=== PATIENT | male | born 1945 | race Caucasian/White ===

== ENCOUNTER 2019-10-12 06:53 | Day surgery (SDC) | payer MEDICARE ==
[2019-10-12] VITALS (11 sets, daily range): BP systolic 130–154; BP diastolic 59–76
[~2019-10-12] VITALS: Ht 182.9 cm; Wt 106.5 kg
[2019-10-12] MEDS ORDERED: acetaminophen 325mg tablet PO ONE (07:30)
[2019-10-12] MEDS ORDERED: diphenhydrAMINE 25mg capsule PO ONE (07:30)
[2019-10-12] MEDS ORDERED: dexamethasone 4mg/ml inj IV ONE (07:30)
[2019-10-12] MEDS ORDERED: dexamethasone sod phosphate 4mg/ml inj. IV ONE (07:40)
[2019-10-12] MEDS ORDERED: normal saline 1000ml 1,000 ML IV SCH (07:55)
== END 2019-10-12 12:30 | disposition home or self-care (01) ==
LOC: SSTAY O 06:53 → EDSTATUS 14:37
PROVIDERS: ATTEND Internal Medicine Hematology & Oncology
DX: C15.9 Malignant neoplasm of esophagus, unspecified (principal); C16.9 Malignant neoplasm of stomach, unspecified
CPT/HCPCS: 36415; 36430; 86885; 86900; 86901; 86920; 86945; J1100; P9016; Q0163

== ENCOUNTER 2019-11-19 18:27 | Inpatient (IN) | payer OTHER, MEDICARE ==
[~2019-11-19] VITALS: Ht 182.9 cm; Wt 104.0 kg
[~2019-11-19 18:27] MED LIST: HYDR4TAB55 PO; LIDO30CR23 TOP; PROC10TA10 PO
--- NOTE | 2019-11-19 18:41 | NUR ---
Pt came in on NRB@15 LPM SaO2 100%. Desat to 87% on RA. Increase to 93% on NC@6 LPM
[2019-11-19] MEDS ORDERED: iohexol 350MG/ML 100ml bottle IV ONE (18:53)
[2019-11-19 19:15] LABS: ABG BASE EXCESS 13.4 mmol/L (-2.0-3.0); ABG HCO3 39.3 mmol/L (22.0-26.0); ABG OXYGEN SATURATION 87.1 % (95-98); ABG PCO2 (T) 58.4 mmHg (35.0-45.0); ABG PH (T) 7.447 (7.350-7.450); ABG PO2 (T) 49.7 mmHg (83-108); ALLEN'S TEST POSITIVE; FCOHb 0.3 % (0.5-1.5); FLOW 6 L/min; FO2Hb 86.8 % (94-100); PATIENT TEMPERATURE 37.2; RESPIRATORY RATE 18 b/min; TOTAL HEMOGLOBIN 10.5 G/dl (14.0-17.9)
[2019-11-19 19:18] LABS: BASOPHILS # (AUTO) 0.2 X10'3 (0-0.2); BASOPHILS % (AUTO) 0.4 % (0-1); EOSINOPHILS # (AUTO) 0.4 X10'3 (0-0.9); EOSINOPHILS % (AUTO) 1.1 % (0-6); HEMATOCRIT 29.7 % (42.0-52.0); HEMOGLOBIN 9.3 g/dl (14.0-17.9); LYMPHOCYTES # (AUTO) 1.2 X10'3 (1.1-4.8); LYMPHOCYTES % (AUTO) 3.1 % (21-51); MEAN CORPUSCULAR HEMOGLOBIN 28.2 PG (27.0-31.0); MEAN CORPUSCULAR HGB CONC 31.4 g/dL (33.0-36.5); MEAN CORPUSCULAR VOLUME 89.6 FL (78-98); MEAN PLATELET VOLUME 9.5 FL (7.4-10.4); MONOCYTES # (AUTO) 2.1 X10'3 (0-0.9); MONOCYTES % (AUTO) 5.3 % (2-12); NEUTROPHILS # (AUTO) 36.1 X10'3 (1.8-7.7); NEUTROPHILS % (AUTO) 90.1 % (42-75); PLATELET COUNT 493 X10'3 (140-440); RED BLOOD COUNT 3.32 X10'6 (4.70-6.10); RED CELL DISTRIBUTION WIDTH 16.7 % (11.5-14.5)
[2019-11-19 19:31] LABS: ALANINE AMINOTRANSFERASE 27 U/L (12-78); ALBUMIN 1.8 G/DL (3.4-5.0); ALBUMIN/GLOBULIN RATIO 0.3 (1.1-1.5); ALKALINE PHOSPHATASE 137 IU/L (46-116); ANION GAP 3 (8-16); ASPARTATE AMINO TRANSFERASE 34 U/L (10-37); BILIRUBIN,TOTAL 0.3 MG/DL (0.1-1.0); BLOOD UREA NITROGEN 33 MG/DL (7-18); BUN/CREATININE RATIO 20.8 (5.4-32.0); CALCIUM 8.7 MG/DL (8.5-10.1); CHLORIDE 100 MMOL/L (99-107); CREATININE 1.59 MG/DL (0.60-1.10); GLUCOSE 134 MG/DL (70-104); POTASSIUM 3.9 MMOL/L (3.5-5.1); SODIUM 142 MMOL/L (135-145); TOTAL PROTEIN 7.5 G/DL (6.4-8.2); eGFR 43 ML/MIN
[2019-11-19 19:48] LABS: TOTAL CELLS COUNTED 100
[2019-11-19 19:50] LABS: ANISOCYTOSIS 1+; PLATELET ESTIMATE INCREASED; STOMATOCYTES 1+; TARGET CELLS 1+
[2019-11-19] MEDS ORDERED: heparin 10,000 units/1 ML INJ IV ONE ×2 (19:55→20:00)
--- NOTE | 2019-11-19 20:00 | NUR ---
per ann Denton start PE heparin protocol
[2019-11-19] MEDS: heparin 25,000 UNIT/250ml bag 250 ML IV SCH (20:11)
[2019-11-19] MEDS ORDERED: AMIO200T61 PO (20:21)
[2019-11-19] MEDS ORDERED: DOCU100C40 PO (20:21)
[2019-11-19] MEDS ORDERED: ENOX100S3 SQ (20:22)
[2019-11-19] MEDS ORDERED: FURO-149 PO (20:22)
[2019-11-19] MEDS ORDERED: HYDR-4383 PO (20:23)
[2019-11-19] MEDS ORDERED: ROBCFL PO (20:23)
[2019-11-19] MEDS ORDERED: LANTUS SQ (20:24)
[2019-11-19] MEDS ORDERED: INSU100C10 SQ (20:25)
[2019-11-19] MEDS ORDERED: METH125V13 IM (20:26)
[2019-11-19] MEDS ORDERED: PANT40TA4 PO (20:26)
[2019-11-19] MEDS ORDERED: ALB0.5UD IH (20:26)
[2019-11-19] MEDS ORDERED: ATR0.5NEB IH (20:27)
[2019-11-19] MEDS ORDERED: PIPE3.376 IV (20:28)
[2019-11-19] MEDS ORDERED: VANC1VIA21 IV (20:28)
[2019-11-19] MEDS ORDERED: ACET-1008 PO (20:29)
[2019-11-19] MEDS ORDERED: MAG355OR18 PO (20:30)
[2019-11-19] MEDS ORDERED: LOPE2CAP PO (20:30)
[2019-11-19] MEDS ORDERED: LORA2VIA30 IM (20:31)
[2019-11-19] MEDS ORDERED: ONDA4TAB12 PO (20:32)
[2019-11-19] MEDS ORDERED: OLAN5TAB3 PO (20:32)
[2019-11-19] MEDS ORDERED: POLY17PO10 PO (20:33)
--- NOTE | 2019-11-19 22:36 | NUR ---
SPOKE WITH DR. STROUD AT [facility] DR. STROUD WAS ASKING FOR AN UPDATE, I RECIEVED PHONE # AND VERBALIZED TO NANCY STARKS, NANCY STARKS VERBALIZE THAT HE WOULD CALL DR. STROUD IN FRONT OF DR. CARLIN
[2019-11-19] MEDS ORDERED: acetaminophen 325mg tablet PO PRN (23:25)
[2019-11-19] MEDS ORDERED: magnesium hydroxide 30ml (MOM) UD suspension PO PRN (23:25)
[2019-11-19] MEDS ORDERED: ondansetron/PF 4mg/2ml inj IV PRN (23:25)
[2019-11-19] MEDS ORDERED: mag hydrox/Alum hydrox/simeth 30ml oral suspension PO PRN (23:25)
[2019-11-19] MEDS ORDERED: mag hydrox/Alum hydrox/simeth 30ml oral suspension GT PRN (23:32)
[2019-11-19] MEDS ORDERED: magnesium hydroxide 30ml (MOM) UD suspension GT PRN (23:33)
[2019-11-19] MEDS ORDERED: acetaminophen 325mg/10.15ml oral unit dose solution GT PRN (23:35)
--- NOTE | 2019-11-19 23:39 | NUR ---
Limited code status: Everything okay EXCEPT compressions
[2019-11-19] MEDS ORDERED: dextrose 50%-water 50ml dispensing syringe IV PRN ×2 (23:40)
[2019-11-19] MEDS ORDERED: MESSAGE TO PHARMACY PO ONE (23:40)
[2019-11-19] MEDS ORDERED: LORazepam 2 mg/ml vial IM PRN (23:40)
[2019-11-19] MEDS ORDERED: dextrose ORAL solution 15 GM/59 ML bottle PO PRN ×2 (23:40)
[2019-11-19] MEDS ORDERED: glucagon, human recombinant 1mg kit SUBCUT PRN (23:40)
[2019-11-19] MEDS ORDERED: albuterol 2.5 MG/3 ML nebule NEB PRN (23:40)
[2019-11-19] MEDS: normal saline 1000ml 1,000 ML IV SCH (23:49)
[2019-11-20 00:01] LABS: ABG BASE EXCESS 13.5 mmol/L (-2.0-3.0); ABG HCO3 39.2 mmol/L (22.0-26.0); ABG OXYGEN SATURATION 84.9 % (95-98); ABG PCO2 (T) 56.4 mmHg (35.0-45.0); ABG PO2 (T) 46.7 mmHg (83-108); ALLEN'S TEST POSITIVE; FCOHb 0.3 % (0.5-1.5); FLOW 6 L/min; FMetHb 0.1 % (0.3-1.12); FO2Hb 84.6 % (94-100); TOTAL HEMOGLOBIN 10.2 G/dl (14.0-17.9)
[2019-11-20 00:04] LABS: HEMOGLOBIN A1C 5.7 % (4.5-6.2)
[2019-11-20] MEDS ORDERED: dextrose ORAL solution 15 GM/59 ML bottle GT PRN ×2 (00:08)
[2019-11-20] MEDS: piperacillin/tazo 3.375gm/50ml 50 ML IV SCH ×3 (00:38→16:00)
[2019-11-20] MEDS: VANCOMYCIN IV SCH ×3 (00:42→03:30)
[2019-11-20] MEDS: SODIUM CHLORIDE IV SCH ×3 (00:42→03:30)
[2019-11-20] MEDS: [UNRECOGNIZED DRUG - OTHER] IV SCH ×3 (00:42→03:30)
[2019-11-20 02:00] VITALS: BP 127/44
[2019-11-20] MEDS: ipratropium 0.5 MG/2.5ML nebule IH SCH ×6 (02:30→23:38)
[2019-11-20 02:48] LABS: PARTIAL THROMBOPLASTIN TIME 66 SECONDS (22-32)
[2019-11-20] MEDS: HYDROmorphone 2mg tablet JT PRN ×3 (02:49→20:30)
[2019-11-20 06:00] VITALS: BP 112/70
--- NOTE | 2019-11-20 06:49 | NUR ---
Patient in room PCU 3024. I have received report from juan ascencio and had the opportunity to ask questions and assume patient care.
[2019-11-20 07:21] LABS: BASOPHILS % (AUTO) 0.1 % (0-1); EOSINOPHILS # (AUTO) 0.5 X10'3 (0-0.9); EOSINOPHILS % (AUTO) 1.9 % (0-6); HEMATOCRIT 31.3 % (42.0-52.0); HEMOGLOBIN 9.7 g/dl (14.0-17.9); LYMPHOCYTES # (AUTO) 1.1 X10'3 (1.1-4.8); LYMPHOCYTES % (AUTO) 3.7 % (21-51); MEAN CORPUSCULAR HEMOGLOBIN 27.4 PG (27.0-31.0); MEAN CORPUSCULAR VOLUME 88.5 FL (78-98); MEAN PLATELET VOLUME 9.6 FL (7.4-10.4); MONOCYTES # (AUTO) 1.9 X10'3 (0-0.9); MONOCYTES % (AUTO) 6.4 % (2-12); NEUTROPHILS # (AUTO) 25.8 X10'3 (1.8-7.7); NEUTROPHILS % (AUTO) 87.9 % (42-75); PLATELET COUNT 446 X10'3 (140-440); RED BLOOD COUNT 3.54 X10'6 (4.70-6.10); RED CELL DISTRIBUTION WIDTH 16.9 % (11.5-14.5)
[2019-11-20 07:28] LABS: WHITE BLOOD COUNT 29.3 X10'3 (4.5-11.0)
[2019-11-20 07:32] LABS: ALANINE AMINOTRANSFERASE 26 U/L (12-78); ALBUMIN 1.6 G/DL (3.4-5.0); ALBUMIN/GLOBULIN RATIO 0.3 (1.1-1.5); ALKALINE PHOSPHATASE 144 IU/L (46-116); ANION GAP 2 (8-16); ASPARTATE AMINO TRANSFERASE 36 U/L (10-37); BILIRUBIN,TOTAL 0.3 MG/DL (0.1-1.0); BLOOD UREA NITROGEN 29 MG/DL (7-18); CALCIUM 8.8 MG/DL (8.5-10.1); CHLORIDE 100 MMOL/L (99-107); CREATININE 1.61 MG/DL (0.60-1.10); GLUCOSE 150 MG/DL (70-104); POTASSIUM 3.8 MMOL/L (3.5-5.1); SODIUM 139 MMOL/L (135-145); TOTAL CARBON DIOXIDE 36.9 MMOL/L (24-32); TOTAL PROTEIN 6.9 G/DL (6.4-8.2); eGFR 42 ML/MIN
[2019-11-20 07:46] LABS: PLATELET ESTIMATE INCREASED; TOTAL CELLS COUNTED 100
[2019-11-20 07:47] LABS: ANISOCYTOSIS 1+; HYPOCHROMASIA 1+
[2019-11-20] MEDS ORDERED: pantoprazole 40mg Tablet.DR PO SCH (08:00)
[2019-11-20] MEDS ORDERED: docusate sod 100mg capsule PO SCH (08:00)
[2019-11-20] MEDS ORDERED: furosemide 40mg tablet PO SCH (08:00)
[2019-11-20] MEDS: pantoprazole 40 MG vial IV SCH (08:01)
[2019-11-20] MEDS: docusate sodium 100mg/10ml UD cup GT SCH ×2 (08:02→19:26)
[2019-11-20] MEDS: amiodarone 200mg tablet JT SCH (08:02)
[2019-11-20] MEDS: furosemide 40 MG/4 ML oral solution UD cup GT SCH ×3 (08:02→20:19)
[2019-11-20 09:18] LABS: PARTIAL THROMBOPLASTIN TIME 30 SECONDS (22-32)
[2019-11-20] MEDS ORDERED: heparin 10,000 units/1 ML INJ IV PRN (09:40)
[2019-11-20] MEDS: heparin 25,000 UNIT/250ml bag 250 ML IV SCH ×2 (10:00→23:19)
[2019-11-20 11:00] VITALS: BP 106/48
--- NOTE | 2019-11-20 11:23 | NUR ---
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 TF recommendations below calculated to meet 100% of patient's estimated nutrient needs. Pt with active clear liquid diet, previously receiving full liquids prior to discharge 11/11 at last admit. Pt would benefit from MVI and intramuscular or subcutaneous vitamin B12 given recent GI surgery, d/w RN. Pt readmitted from [facility] with a pulmonary embolism. [facility] 11/18. Will continue to follow closely. Recommendations: 1) Continuous TF via jejunostomy using Vital AF with goal rate of 85 mL/hr to provide 2040 mL total volume/day, 2448 kcal, 153 g protein, and 1654 mL water 2) Additional 100 mL water flush Q4H; Not to exceed greater than 150 mL total volume at one time via J-tube 3) Prealbumin q /; daily weights 4) MVI and SQ or IM vitamin B12 given recent GI surgery with MD approval 5) Diet advancement as medically indicated 6) Routine bowel care Addendum: 11/20/19 at [address] Amended: Links added.
[2019-11-20] MEDS ORDERED: VANCOMYCIN 1,500MG inj. 1,500 MG in normal saline 500ml IV soln 500 ML IV SCH (12:00)
[2019-11-20] MEDS: VANCOMYCIN 1,500MG inj. 1,500 MG in normal saline 500ml IV soln 500 ML IV SCH (12:00)
[2019-11-20 15:00] VITALS: BP 105/61
[2019-11-20] MEDS: normal saline 1000ml 1,000 ML IV SCH (16:01)
--- NOTE | 2019-11-20 17:00 | NUR ---
paged with critical value;ptt =132 heparin gtt turned off for 2 hours per protocol
[2019-11-20 18:00] VITALS: BP 113/51
--- NOTE | 2019-11-20 18:37 | NUR ---
Problems reprioritized. Patient report given, questions answered & plan of care reviewed with VICTOR HUGO Smith.
--- NOTE | 2019-11-20 19:45 | NUR ---
Problems reprioritized. Patient report given, questions answered & plan of care reviewed with Jory GAY.
[2019-11-20] MEDS ORDERED: OLANZAPINE 5 MG TABLET PO SCH (21:00)
[2019-11-20] MEDS: insulin glargine (Lantus) pen - multi-dose SQ SCH (21:00)
[2019-11-20] MEDS: OLANZapine 5mg rapidly disint. tablet PO SCH (21:00)
[2019-11-20 22:00] VITALS: BP 95/42
[2019-11-21] MEDS: piperacillin/tazo 3.375gm/50ml 50 ML IV SCH ×3 (00:39→16:04)
[2019-11-21] MEDS: VANCOMYCIN 1,500MG inj. 1,500 MG in normal saline 500ml IV soln 500 ML IV SCH ×2 (00:39→12:00)
[2019-11-21] MEDS: HYDROmorphone 2mg tablet JT PRN ×4 (00:40→22:14)
[2019-11-21 02:00] VITALS: BP 126/51
[2019-11-21] MEDS: ipratropium 0.5 MG/2.5ML nebule IH SCH ×6 (03:41→23:11)
[2019-11-21 05:21] LABS: BASOPHILS # (AUTO) 0.2 X10'3 (0-0.2); BASOPHILS % (AUTO) 1.2 % (0-1); EOSINOPHILS # (AUTO) 1.1 X10'3 (0-0.9); EOSINOPHILS % (AUTO) 7.2 % (0-6); HEMATOCRIT 34.6 % (42.0-52.0); HEMOGLOBIN 10.7 g/dl (14.0-17.9); LYMPHOCYTES # (AUTO) 1.2 X10'3 (1.1-4.8); LYMPHOCYTES % (AUTO) 7.8 % (21-51); MEAN CORPUSCULAR HEMOGLOBIN 28.5 PG (27.0-31.0); MEAN CORPUSCULAR HGB CONC 30.9 g/dL (33.0-36.5); MEAN CORPUSCULAR VOLUME 92.2 FL (78-98); MEAN PLATELET VOLUME 9.8 FL (7.4-10.4); MONOCYTES # (AUTO) 1.8 X10'3 (0-0.9); MONOCYTES % (AUTO) 12.1 % (2-12); NEUTROPHILS # (AUTO) 10.7 X10'3 (1.8-7.7); NEUTROPHILS % (AUTO) 71.7 % (42-75); PLATELET COUNT 412 X10'3 (140-440); RED BLOOD COUNT 3.75 X10'6 (4.70-6.10); RED CELL DISTRIBUTION WIDTH 16.8 % (11.5-14.5); WHITE BLOOD COUNT 14.9 X10'3 (4.5-11.0)
[2019-11-21 06:00] VITALS: BP 118/49
--- NOTE | 2019-11-21 06:20 | NUR ---
Patient in room PCU 3024. I have received report from VICTOR HUGO Smith and had the opportunity to ask questions and assume patient care. Patient currently resting in bed, bed locked and low, call light in reach, no acute distress, will continue to monitor.
--- NOTE | 2019-11-21 06:23 | NUR ---
Problems reprioritized. Patient report given, questions answered & plan of care reviewed with Ashley GAY.
[2019-11-21 07:25] LABS: ALANINE AMINOTRANSFERASE 28 U/L (12-78); ALBUMIN 1.7 G/DL (3.4-5.0); ALBUMIN/GLOBULIN RATIO 0.3 (1.1-1.5); ALKALINE PHOSPHATASE 140 IU/L (46-116); ANION GAP -1 (8-16); ASPARTATE AMINO TRANSFERASE 35 U/L (10-37); BILIRUBIN,TOTAL 0.2 MG/DL (0.1-1.0); BLOOD UREA NITROGEN 25 MG/DL (7-18); BUN/CREATININE RATIO 15.4 (5.4-32.0); CALCIUM 8.9 MG/DL (8.5-10.1); CHLORIDE 100 MMOL/L (99-107); CREATININE 1.62 MG/DL (0.60-1.10); GLUCOSE 143 MG/DL (70-104); SODIUM 136 MMOL/L (135-145); TOTAL CARBON DIOXIDE 36.7 MMOL/L (24-32); TOTAL PROTEIN 7.2 G/DL (6.4-8.2); eGFR 42 ML/MIN
[2019-11-21] MEDS: furosemide 40 MG/4 ML oral solution UD cup GT SCH (08:28)
[2019-11-21] MEDS: amiodarone 200mg tablet JT SCH (08:28)
[2019-11-21] MEDS: docusate sodium 100mg/10ml UD cup GT SCH ×2 (08:29→18:56)
[2019-11-21] MEDS: pantoprazole 40 MG vial IV SCH (08:29)
[2019-11-21] MEDS: normal saline 1000ml 1,000 ML IV SCH (08:30)
--- NOTE | 2019-11-21 09:45 | NUR ---
PAGER ID: [phone] MESSAGE: Ashley Guevara RN, ext [phone], [phone], Mansi, patient's cough/lung sounds wet, white thick, frothy sputum, stopped NS@60, awaiting orders, also did not know why he was getting NS and Lasix simultaneously.
[2019-11-21] MEDS ORDERED: furosemide 40mg/4ml inj IV ONE (10:10)
--- NOTE | 2019-11-21 10:15 | NUR ---
Dr. Elaine at bedside, ordered lasix 40mg IV BID and DC'd NS.
[2019-11-21 11:00] VITALS: BP 114/50
[2019-11-21] MEDS ORDERED: VANCOMYCIN LEVEL IV ONE (11:30)
--- NOTE | 2019-11-21 12:22 | NUR ---
Critically high Vanco trough of 38.7 reported from Lab. Clare CRAWFORD to make aware and called pharmacy, pharmacist stated to hold 1200 Vanco dose.
[2019-11-21] MEDS ORDERED: VANCOMYCIN 1,500MG inj. 1,500 MG in normal saline 500ml IV soln 500 ML IV PRN (12:40)
[2019-11-21] MEDS: heparin 25,000 UNIT/250ml bag 250 ML IV SCH (13:24)
[2019-11-21 15:00] VITALS: BP 97/46
[2019-11-21] MEDS: furosemide 40mg/4ml inj IV SCH (16:03)
[2019-11-21 16:17] LABS: PARTIAL THROMBOPLASTIN TIME 56 SECONDS (22-32)
[2019-11-21 18:00] VITALS: BP 94/49
--- NOTE | 2019-11-21 18:26 | NUR ---
Problems reprioritized. Patient report given, questions answered & plan of care reviewed with VICTOR HUGO Benítez.
[2019-11-21] MEDS: insulin glargine (Lantus) pen - multi-dose SQ SCH (21:00)
[2019-11-21] MEDS: OLANZapine 5mg rapidly disint. tablet PO SCH (21:00)
[2019-11-21 22:00] VITALS: BP 109/47
[2019-11-22] VITALS (8 sets, daily range): BP systolic 90–169; BP diastolic 38–60
[2019-11-22] MEDS: piperacillin/tazo 3.375gm/50ml 50 ML IV SCH ×4 (00:02→23:13)
[2019-11-22] MEDS: heparin 25,000 UNIT/250ml bag 250 ML IV SCH (01:17)
[2019-11-22] MEDS: VANCOMYCIN LEVEL IV SCH (03:00)
[2019-11-22] MEDS: ipratropium 0.5 MG/2.5ML nebule IH SCH ×6 (03:54→23:52)
[2019-11-22 05:21] LABS: BASOPHILS # (AUTO) 0.2 X10'3 (0-0.2); EOSINOPHILS # (AUTO) 0.8 X10'3 (0-0.9); EOSINOPHILS % (AUTO) 5.6 % (0-6); HEMATOCRIT 31.1 % (42.0-52.0); HEMOGLOBIN 9.7 g/dl (14.0-17.9); LYMPHOCYTES # (AUTO) 1.2 X10'3 (1.1-4.8); LYMPHOCYTES % (AUTO) 8.6 % (21-51); MEAN CORPUSCULAR HEMOGLOBIN 28.4 PG (27.0-31.0); MEAN CORPUSCULAR HGB CONC 31.3 g/dL (33.0-36.5); MEAN CORPUSCULAR VOLUME 90.6 FL (78-98); MEAN PLATELET VOLUME 9.5 FL (7.4-10.4); MONOCYTES # (AUTO) 1.6 X10'3 (0-0.9); MONOCYTES % (AUTO) 11.2 % (2-12); NEUTROPHILS # (AUTO) 10.7 X10'3 (1.8-7.7); NEUTROPHILS % (AUTO) 73.6 % (42-75); PLATELET COUNT 422 X10'3 (140-440); RED BLOOD COUNT 3.43 X10'6 (4.70-6.10); RED CELL DISTRIBUTION WIDTH 16.4 % (11.5-14.5); WHITE BLOOD COUNT 14.5 X10'3 (4.5-11.0)
[2019-11-22 05:52] LABS: ALANINE AMINOTRANSFERASE 32 U/L (12-78); ALBUMIN 1.7 G/DL (3.4-5.0); ALBUMIN/GLOBULIN RATIO 0.3 (1.1-1.5); ALKALINE PHOSPHATASE 134 IU/L (46-116); ANION GAP 6 (8-16); ASPARTATE AMINO TRANSFERASE 38 U/L (10-37); BILIRUBIN,TOTAL 0.3 MG/DL (0.1-1.0); BLOOD UREA NITROGEN 23 MG/DL (7-18); BUN/CREATININE RATIO 13.9 (5.4-32.0); CALCIUM 8.6 MG/DL (8.5-10.1); CHLORIDE 96 MMOL/L (99-107); CREATININE 1.66 MG/DL (0.60-1.10); GLUCOSE 170 MG/DL (70-104); POTASSIUM 3.6 MMOL/L (3.5-5.1); PREALBUMIN 9.8 MG/DL (19-36); SODIUM 139 MMOL/L (135-145); TOTAL CARBON DIOXIDE 37.2 MMOL/L (24-32); TOTAL PROTEIN 7.3 G/DL (6.4-8.2); eGFR 41 ML/MIN
[2019-11-22 05:53] LABS: VANCOMYCIN,TROUGH 27.4 UG/ML (6.0-14.0)
--- NOTE | 2019-11-22 06:07 | NUR ---
Problems reprioritized. Patient report given, questions answered & plan of care reviewed with Génesis GAY.
--- NOTE | 2019-11-22 06:35 | NUR ---
Patient in room PCU 3024. I have received report from VICTOR HUGO Benítez and had the opportunity to ask questions and assume patient care.
[2019-11-22] MEDS: pantoprazole 40 MG vial IV SCH (08:27)
[2019-11-22] MEDS: furosemide 40mg/4ml inj IV SCH ×3 (08:27→17:27)
[2019-11-22] MEDS: docusate sodium 100mg/10ml UD cup GT SCH ×2 (08:27→19:33)
[2019-11-22] MEDS: amiodarone 200mg tablet JT SCH (08:27)
[2019-11-22] MEDS: insulin Lispro (HumaLOG) vial - multi-dose SQ SCH ×3 (08:43→20:03)
--- NOTE | 2019-11-22 16:30 | NUR ---
PAGER ID: [phone] MESSAGE: [id number]. pt. Tanvir Cabrera. pharmacy said heparin should be d/c 2 hrs before lovenox. that would be at 1800. pt. heparin just ran dry and it seems excessive to order a new bag. please advise. Génesis, [phone]
--- NOTE | 2019-11-22 18:00 | NUR ---
Patient in room PCU 3024. I have received report from VICTOR HUGO Capps and had the opportunity to ask questions and assume patient care.
[2019-11-22] MEDS: enoxaparin 100mg/ml syringe SUBCUT SCH (18:39)
--- NOTE | 2019-11-22 18:42 | NUR ---
Problems reprioritized. Patient report given, questions answered & plan of care reviewed with VICTOR HUGO Handley.
[2019-11-22] MEDS: lactobacillus rhamnosus 10,000 MMU CELLS/CAPSULE PO SCH (19:33)
[2019-11-22] MEDS ORDERED: enoxaparin 100mg/ml syringe SUBCUT SCH (20:00)
[2019-11-22] MEDS: insulin glargine (Lantus) pen - multi-dose SQ SCH (20:04)
[2019-11-22] MEDS: OLANZapine 5mg rapidly disint. tablet PO SCH (20:09)
[2019-11-23 02:00] VITALS: BP 159/62
[2019-11-23] MEDS: VANCOMYCIN LEVEL IV SCH (03:00)
[2019-11-23] MEDS: ipratropium 0.5 MG/2.5ML nebule IH SCH ×6 (03:16→23:59)
[2019-11-23 04:21] LABS: BASOPHILS # (AUTO) 0.1 X10'3 (0-0.2); BASOPHILS % (AUTO) 0.7 % (0-1); EOSINOPHILS # (AUTO) 0.5 X10'3 (0-0.9); EOSINOPHILS % (AUTO) 3.2 % (0-6); HEMATOCRIT 28.4 % (42.0-52.0); HEMOGLOBIN 9.2 g/dl (14.0-17.9); LYMPHOCYTES # (AUTO) 1.1 X10'3 (1.1-4.8); LYMPHOCYTES % (AUTO) 7.2 % (21-51); MEAN CORPUSCULAR HEMOGLOBIN 28.7 PG (27.0-31.0); MEAN CORPUSCULAR HGB CONC 32.3 g/dL (33.0-36.5); MEAN CORPUSCULAR VOLUME 89.1 FL (78-98); MEAN PLATELET VOLUME 9.6 FL (7.4-10.4); MONOCYTES # (AUTO) 1.9 X10'3 (0-0.9); NEUTROPHILS # (AUTO) 11.2 X10'3 (1.8-7.7); NEUTROPHILS % (AUTO) 75.9 % (42-75); PLATELET COUNT 361 X10'3 (140-440); RED BLOOD COUNT 3.19 X10'6 (4.70-6.10); WHITE BLOOD COUNT 14.7 X10'3 (4.5-11.0)
[2019-11-23 04:40] LABS: ALANINE AMINOTRANSFERASE 29 U/L (12-78); ALBUMIN 1.5 G/DL (3.4-5.0); ALBUMIN/GLOBULIN RATIO 0.3 (1.1-1.5); ALKALINE PHOSPHATASE 114 IU/L (46-116); ANION GAP 4 (8-16); ASPARTATE AMINO TRANSFERASE 42 U/L (10-37); BILIRUBIN,TOTAL 0.2 MG/DL (0.1-1.0); BLOOD UREA NITROGEN 23 MG/DL (7-18); BUN/CREATININE RATIO 15.3 (5.4-32.0); CHLORIDE 98 MMOL/L (99-107); GLUCOSE 166 MG/DL (70-104); POTASSIUM 3.2 MMOL/L (3.5-5.1); SODIUM 138 MMOL/L (135-145); TOTAL CARBON DIOXIDE 36.2 MMOL/L (24-32); TOTAL PROTEIN 6.7 G/DL (6.4-8.2); VANCOMYCIN,TROUGH 17.2 UG/ML (6.0-14.0); eGFR 46 ML/MIN
[2019-11-23 06:00] VITALS: BP 98/44
--- NOTE | 2019-11-23 06:00 | NUR ---
Patient in room PCU 3024. I have received report from VICTOR HUGO Welsh and had the opportunity to ask questions and assume patient care.
--- NOTE | 2019-11-23 06:18 | NUR ---
Problems reprioritized. Patient report given, questions answered & plan of care reviewed with VICTOR HUGO Cruz.
--- NOTE | 2019-11-23 07:56 | NUR ---
Pharmacy states amiodarone is okay to be crushed.
[2019-11-23] MEDS ORDERED: magnesium 4gm in 100ml NS 100 ML IV PRN (08:05)
[2019-11-23] MEDS: K and/or MAG REPLACEMENT MC SCH ×2 (08:05→19:12)
[2019-11-23] MEDS ORDERED: potassium CL 10mEq/100ml bag 100 ML IV PRN (08:05)
[2019-11-23] MEDS ORDERED: magnesium Cl slow-release 64mg tablet PO PRN (08:05)
[2019-11-23] MEDS ORDERED: potassium Cl 20 mEq SR tablet PO PRN (08:05)
[2019-11-23] MEDS: docusate sodium 100mg/10ml UD cup GT SCH ×2 (08:34→19:12)
[2019-11-23] MEDS: enoxaparin 100mg/ml syringe SUBCUT SCH ×2 (08:34→19:11)
[2019-11-23] MEDS: vancomycin inj 1,000 MG in normal saline 250ml IV soln 250 ML IV SCH ×2 (08:34→19:56)
[2019-11-23] MEDS: pantoprazole 40 MG vial IV SCH (08:35)
[2019-11-23] MEDS: potassium Cl 20 mEq SR tablet PO PRN ×3 (08:35→23:21)
[2019-11-23] MEDS: amiodarone 200mg tablet JT SCH (08:35)
[2019-11-23] MEDS: lactobacillus rhamnosus 10,000 MMU CELLS/CAPSULE PO SCH ×2 (08:35→19:10)
[2019-11-23] MEDS: furosemide 40mg/4ml inj IV SCH ×3 (08:35→16:21)
[2019-11-23] MEDS: HYDROmorphone 2mg tablet JT PRN ×3 (08:52→22:40)
[2019-11-23] MEDS: insulin Lispro (HumaLOG) vial - multi-dose SQ SCH ×2 (09:08→15:31)
--- NOTE | 2019-11-23 10:35 | NUR ---
Reassessment: Pt with possible CHF with EF 55-60% and AURE per MD notes. Pt continues on clear liquid diet averaging 50% PO intake however noted to have refused all PO meals yesterday. Nutrient needs are being met with TF via jejunostomy, currently at goal rate. LBM 11/21. Pt documented with liquid stools however continues to be receiving routine Colace. No further nutrition intervention implemented at this time. Will continue to follow. Recommendations: 1) Continuous TF via jejunostomy using Vital AF with goal rate of 85 mL/hr to provide 2040 mL total volume/day, 2448 kcal, 153 g protein, and 1654 mL water 2) Additional 100 mL water flush Q4H; Not to exceed greater than 150 mL total volume at one time via J-tube 3) Prealbumin q /; daily weights 4) MVI and SQ or IM vitamin B12 given recent GI surgery with MD approval 5) Diet advancement as medically indicated 6) Routine bowel care Addendum: 11/23/19 at [address] Amended: Links added.
[2019-11-23] MEDS: piperacillin/tazo 3.375gm/50ml 50 ML IV SCH ×3 (10:57→23:21)
[2019-11-23 11:00] VITALS: BP 128/83
[2019-11-23 15:00] VITALS: BP 119/52
[2019-11-23 18:00] VITALS: BP 126/78
--- NOTE | 2019-11-23 18:31 | NUR ---
Problems reprioritized. Patient report given, questions answered & plan of care reviewed with VICTOR HUGO Welsh.
[2019-11-23] MEDS: OLANZapine 5mg rapidly disint. tablet PO SCH (20:11)
[2019-11-23] MEDS: insulin regular, human U-100 3ml vial - multi-dose SQ SCH (20:40)
[2019-11-23] MEDS: insulin glargine (Lantus) pen - multi-dose SQ SCH (20:42)
[2019-11-23 22:00] VITALS: BP 114/51
[2019-11-24 02:00] VITALS: BP 120/55
[2019-11-24] MEDS: ipratropium 0.5 MG/2.5ML nebule IH SCH ×6 (03:38→23:30)
[2019-11-24 05:35] LABS: BASOPHILS # (AUTO) 0.1 X10'3 (0-0.2); BASOPHILS % (AUTO) 0.5 % (0-1); EOSINOPHILS # (AUTO) 0.2 X10'3 (0-0.9); EOSINOPHILS % (AUTO) 1.4 % (0-6); HEMATOCRIT 33.2 % (42.0-52.0); HEMOGLOBIN 10.3 g/dl (14.0-17.9); LYMPHOCYTES # (AUTO) 0.8 X10'3 (1.1-4.8); LYMPHOCYTES % (AUTO) 4.4 % (21-51); MEAN CORPUSCULAR HGB CONC 30.9 g/dL (33.0-36.5); MEAN CORPUSCULAR VOLUME 90.4 FL (78-98); MEAN PLATELET VOLUME 9.6 FL (7.4-10.4); MONOCYTES # (AUTO) 1.8 X10'3 (0-0.9); MONOCYTES % (AUTO) 10.7 % (2-12); NEUTROPHILS # (AUTO) 14.2 X10'3 (1.8-7.7); PLATELET COUNT 436 X10'3 (140-440); RED BLOOD COUNT 3.68 X10'6 (4.70-6.10); WHITE BLOOD COUNT 17.2 X10'3 (4.5-11.0)
--- NOTE | 2019-11-24 05:49 | NUR ---
Paged RT. [phone] : Kyle Cabrera : Pt needs a breathing tx; his O2 sat is 77-81 % right now @ hi flow. Thanks!
[2019-11-24 06:00] VITALS: BP 121/72
[2019-11-24 06:32] LABS: ALANINE AMINOTRANSFERASE 35 U/L (12-78); ALBUMIN 1.8 G/DL (3.4-5.0); ALBUMIN/GLOBULIN RATIO 0.3 (1.1-1.5); ALKALINE PHOSPHATASE 128 IU/L (46-116); ANION GAP 3 (8-16); ASPARTATE AMINO TRANSFERASE 47 U/L (10-37); BILIRUBIN,TOTAL 0.2 MG/DL (0.1-1.0); BLOOD UREA NITROGEN 22 MG/DL (7-18); BUN/CREATININE RATIO 15.3 (5.4-32.0); CALCIUM 8.6 MG/DL (8.5-10.1); CHLORIDE 98 MMOL/L (99-107); CREATININE 1.44 MG/DL (0.60-1.10); GLUCOSE 189 MG/DL (70-104); POTASSIUM 4.1 MMOL/L (3.5-5.1); SODIUM 139 MMOL/L (135-145); TOTAL PROTEIN 7.5 G/DL (6.4-8.2); eGFR 48 ML/MIN
--- NOTE | 2019-11-24 06:40 | NUR ---
Problems reprioritized. Patient report given, questions answered & plan of care reviewed with VICTOR HUGO Argueta.
--- NOTE | 2019-11-24 06:59 | NUR ---
Patient in room PCU 3024. I have received report from Iza GAY and had the opportunity to ask questions and assume patient care.
[2019-11-24] MEDS: K and/or MAG REPLACEMENT MC SCH ×2 (08:00→20:00)
[2019-11-24] MEDS: docusate sodium 100mg/10ml UD cup GT SCH ×2 (09:10→20:00)
[2019-11-24] MEDS: vancomycin inj 1,000 MG in normal saline 250ml IV soln 250 ML IV SCH ×2 (09:10→20:00)
[2019-11-24] MEDS: piperacillin/tazo 3.375gm/50ml 50 ML IV SCH ×3 (09:10→16:45)
[2019-11-24] MEDS: furosemide 40mg/4ml inj IV SCH ×2 (09:11→16:45)
[2019-11-24] MEDS: enoxaparin 100mg/ml syringe SUBCUT SCH ×2 (09:11→20:59)
[2019-11-24] MEDS: pantoprazole 40 MG vial IV SCH (09:12)
[2019-11-24] MEDS: amiodarone 200mg tablet JT SCH (09:12)
[2019-11-24] MEDS: lactobacillus rhamnosus 10,000 MMU CELLS/CAPSULE PO SCH ×2 (09:12→20:57)
[2019-11-24] MEDS: insulin regular, human U-100 3ml vial - multi-dose SQ SCH ×3 (10:07→22:09)
[2019-11-24 10:16] LABS: ABG BASE EXCESS 9.2 mmol/L (-2.0-3.0); ABG HCO3 36.3 mmol/L (22.0-26.0); ABG OXYGEN SATURATION 97.5 % (95-98); ABG PCO2 (T) 65.1 mmHg (35.0-45.0); ABG PH (T) 7.364 (7.350-7.450); ABG PO2 (T) 99.2 mmHg (83-108); ALLEN'S TEST POSITIVE; FCOHb 0.3 % (0.5-1.5); FLOW 11 L/min; FMetHb 0.2 % (0.3-1.12); TOTAL HEMOGLOBIN 10.2 G/dl (14.0-17.9)
[2019-11-24] MEDS: HYDROmorphone 2mg tablet JT PRN ×3 (10:33→20:57)
[2019-11-24 11:00] VITALS: BP 134/59
[2019-11-24 15:00] VITALS: BP 123/53
[2019-11-24 18:15] VITALS: BP 130/60
--- NOTE | 2019-11-24 18:42 | NUR ---
Problems reprioritized. Patient report given, questions answered & plan of care reviewed with Ananya GAY.
--- NOTE | 2019-11-24 19:20 | NUR ---
Patient in room PCU 3024. I have received report from VICTOR HUGO VASQUEZ and had the opportunity to ask questions and assume patient care.
[2019-11-24] MEDS ORDERED: VANCOMYCIN LEVEL IV ONE (19:30)
--- NOTE | 2019-11-24 20:19 | NUR ---
PAGER ID: [phone] MESSAGE: [phone], Tanvir English, DX: 11/18: PE, COPD, CHROMIUM LUNG, RECENT ESPHAGECTOMY, ETC. TODAY VANCO TROUGH 24.8, WAS 17.2. RYAN Maisha, [phone]
--- NOTE | 2019-11-24 20:22 | NUR ---
PER PHARMACY, HOLD [address] KERR AWARES.
[2019-11-24] MEDS: OLANZapine 5mg rapidly disint. tablet PO SCH (20:57)
[2019-11-24] MEDS: insulin glargine (Lantus) pen - multi-dose SQ SCH (22:10)
[2019-11-24 23:19] VITALS: BP 124/58
[2019-11-25] VITALS (10 sets, daily range): BP systolic 98–163; BP diastolic 46–76
[2019-11-25] MEDS: piperacillin/tazo 3.375gm/50ml 50 ML IV SCH ×3 (00:56→16:26)
--- NOTE | 2019-11-25 03:00 | NUR ---
RT COMPLETE TREATMENT PT CURRENTLY ON NONREBREATHER. RT SUGGESTS PT GETS AN ABG AND POSSIBLE BIPAP. PAGED AND INFORMED DR. KERR AND RECEIVED ORDER FOR ABG WITH POSSIBLE BIPAP AND A STAT CXR. ORDER PLACED AND RADIOLOGY PAGED.
[2019-11-25] MEDS: ipratropium 0.5 MG/2.5ML nebule IH SCH ×4 (03:01→14:27)
[2019-11-25 03:55] LABS: ABG BASE EXCESS 11.2 mmol/L (-2.0-3.0); ABG HCO3 41.4 mmol/L (22.0-26.0); ABG OXYGEN SATURATION 92.2 % (95-98); ABG PCO2 (T) 97.8 mmHg (35.0-45.0); ABG PH (T) 7.244 (7.350-7.450); ABG PO2 (T) 69.3 mmHg (83-108); ALLEN'S TEST POSITIVE; FCOHb 0.1 % (0.5-1.5); FO2Hb 92.1 % (94-100); TOTAL HEMOGLOBIN 10.1 G/dl (14.0-17.9)
[2019-11-25] MEDS ORDERED: furosemide 40mg/4ml inj IV ONE (04:35)
--- NOTE | 2019-11-25 04:45 | NUR ---
Problems reprioritized. Patient report given, questions answered & plan of care reviewed with VICTOR HUGO RABAGO.
--- NOTE | 2019-11-25 05:00 | NUR ---
Patient in room PCU 3024. I have received report from VICTOR HUGO harris and had the opportunity to ask questions and assume patient care.
--- NOTE | 2019-11-25 05:13 | NUR ---
notified for stat chest xray showing bilateral effusions per radiologist. New orders were given for lasix 40 mg once IV now, and to switch BID lasix 40mg to TID. BP was 118/84 before administering lasix
[2019-11-25 05:51] LABS: ABG PCO2 (T) 86.1 mmHg (35.0-45.0); ABG PH (T) 7.326 (7.350-7.450); ABG PO2 (T) 83.4 mmHg (83-108); ALLEN'S TEST POSITIVE; FCOHb 0.3 % (0.5-1.5); FMetHb 0.7 % (0.3-1.12); TOTAL HEMOGLOBIN 10.2 G/dl (14.0-17.9)
--- NOTE | 2019-11-25 06:00 | NUR ---
Patient in room PCU 3024. I have received report from Marialuisa GAY and had the opportunity to ask questions and assume patient care.
--- NOTE | 2019-11-25 06:00 | NUR ---
Patient in room PCU 3024. I have received report from Marialuisa GAY and had the opportunity to ask questions and assume patient care.
--- NOTE | 2019-11-25 06:15 | NUR ---
Patient in room PCU 3024. I have received report from Marialuisa GAY and had the opportunity to ask questions and assume patient care. Patient is on Bipap at 70%fio2 at this time, tube feed is running at 85ml goal rate, patient HOB is greater than 30 degrees, patient offers no complaints at this time.
[2019-11-25 06:21] LABS: POTASSIUM 4.3 MMOL/L (3.5-5.1)
--- NOTE | 2019-11-25 06:41 | NUR ---
Problems reprioritized. Patient report given, questions answered & plan of care reviewed with VICTOR HUGO Estrada.
--- NOTE | 2019-11-25 07:29 | NUR ---
Patient labs were ordered per protocol as the patient is receiving lasix and antibiotics and lab values need to be monitored for those medications.
[2019-11-25] MEDS: amiodarone 200mg tablet JT SCH (07:51)
[2019-11-25] MEDS: docusate sodium 100mg/10ml UD cup GT SCH ×2 (07:51→19:12)
[2019-11-25] MEDS: lactobacillus rhamnosus 10,000 MMU CELLS/CAPSULE PO SCH ×2 (07:51→20:34)
[2019-11-25 07:53] LABS: BASOPHILS # (AUTO) 0.1 X10'3 (0-0.2); BASOPHILS % (AUTO) 0.5 % (0-1); EOSINOPHILS % (AUTO) 0.3 % (0-6); HEMATOCRIT 31.8 % (42.0-52.0); HEMOGLOBIN 9.7 g/dl (14.0-17.9); LYMPHOCYTES # (AUTO) 0.6 X10'3 (1.1-4.8); LYMPHOCYTES % (AUTO) 3.6 % (21-51); MEAN CORPUSCULAR HEMOGLOBIN 27.9 PG (27.0-31.0); MEAN CORPUSCULAR HGB CONC 30.4 g/dL (33.0-36.5); MEAN CORPUSCULAR VOLUME 91.7 FL (78-98); MEAN PLATELET VOLUME 9.5 FL (7.4-10.4); MONOCYTES # (AUTO) 1.2 X10'3 (0-0.9); NEUTROPHILS # (AUTO) 15.7 X10'3 (1.8-7.7); NEUTROPHILS % (AUTO) 88.6 % (42-75); PLATELET COUNT 442 X10'3 (140-440); RED BLOOD COUNT 3.46 X10'6 (4.70-6.10); RED CELL DISTRIBUTION WIDTH 17.1 % (11.5-14.5); WHITE BLOOD COUNT 17.7 X10'3 (4.5-11.0)
[2019-11-25] MEDS: furosemide 40mg/4ml inj IV SCH ×3 (07:56→20:34)
[2019-11-25] MEDS: pantoprazole 40 MG vial IV SCH (07:56)
[2019-11-25] MEDS: vancomycin inj 1,000 MG in normal saline 250ml IV soln 250 ML IV SCH (07:57)
[2019-11-25] MEDS: K and/or MAG REPLACEMENT MC SCH ×2 (08:00→19:12)
[2019-11-25] MEDS: enoxaparin 100mg/ml syringe SUBCUT SCH ×2 (08:00→20:35)
[2019-11-25 08:03] LABS: ALBUMIN 1.8 G/DL (3.4-5.0); ANION GAP 3 (8-16); BLOOD UREA NITROGEN 26 MG/DL (7-18); BUN/CREATININE RATIO 17.9 (5.4-32.0); CALCIUM 8.3 MG/DL (8.5-10.1); CHLORIDE 98 MMOL/L (99-107); CREATININE 1.45 MG/DL (0.60-1.10); GLUCOSE 170 MG/DL (70-104); SODIUM 140 MMOL/L (135-145); TOTAL CARBON DIOXIDE 39.5 MMOL/L (24-32); eGFR 48 ML/MIN
[2019-11-25] MEDS: insulin regular, human U-100 3ml vial - multi-dose SQ SCH ×3 (08:22→20:57)
--- NOTE | 2019-11-25 08:37 | NUR ---
Patient was grabbing with his hands during medication administration and assessment today. Patient grabbed orientee and RN in inappropriate places and was told to keep his hands to his self and not to touch people like that. Patients hands were re-directed, CRN was notified, RN will complete occurrence report.
[2019-11-25 13:26] LABS: ABG BASE EXCESS 14.7 mmol/L (-2.0-3.0); ABG OXYGEN SATURATION 94.6 % (95-98); ABG PCO2 (T) 80.9 mmHg (35.0-45.0); ABG PH (T) 7.343 (7.350-7.450); ABG PO2 (T) 71.5 mmHg (83-108); FCOHb 0.3 % (0.5-1.5); FMetHb 0.2 % (0.3-1.12); FO2Hb 94.1 % (94-100); RESPIRATORY RATE 16 b/min; TOTAL HEMOGLOBIN 9.6 G/dl (14.0-17.9)
--- NOTE | 2019-11-25 14:33 | NUR ---
promotional table spacer PAGER ID: [phone] MESSAGE: Cali [id number], Amador. ABG has resulted in meditech, patient is on Bipap at 100% Fio2, IPAP 18, EPAP 10. Thank you Natalie [phone]
[2019-11-25] MEDS ORDERED: albuterol 2.5 MG/3 ML nebule NEB SCH (16:25)
[2019-11-25] MEDS ORDERED: loperamide 2mg capsule PO ONE (16:35)
[2019-11-25] MEDS ORDERED: albuterol 2.5 MG/3 ML nebule NEB PRN (17:30)
--- NOTE | 2019-11-25 18:39 | NUR ---
Patient in room PCU 3024. I have received report from Natalie GAY and Myra GAY and had the opportunity to ask questions and assume patient care.
[2019-11-25] MEDS: ipratropium/albuterol 3ml nebule NEB SCH ×2 (19:17→23:28)
[2019-11-25] MEDS: acetylcysteine 200 MG/ml 4ml vial PO SCH (19:21)
[2019-11-25] MEDS: OLANZapine 5mg rapidly disint. tablet PO SCH (20:34)
[2019-11-25] MEDS: VANCOMYCIN 750MG IV in NS 250 ML IV SCH (20:34)
[2019-11-25] MEDS: insulin glargine (Lantus) pen - multi-dose SQ SCH (20:55)
[2019-11-25] MEDS: HYDROmorphone 2mg tablet JT PRN (21:18)
[2019-11-26] VITALS (13 sets, daily range): BP systolic 110–139; BP diastolic 46–85
[2019-11-26] MEDS: piperacillin/tazo 3.375gm/50ml 50 ML IV SCH ×3 (00:12→18:16)
[2019-11-26] MEDS: insulin regular, human U-100 3ml vial - multi-dose SQ SCH ×4 (02:12→20:57)
[2019-11-26] MEDS: ipratropium/albuterol 3ml nebule NEB SCH ×6 (03:58→23:23)
--- NOTE | 2019-11-26 06:00 | NUR ---
Patient in room PCU 3024. I have received report from Remedios GAY and had the opportunity to ask questions and assume patient care.
--- NOTE | 2019-11-26 06:28 | NUR ---
Problems reprioritized. Patient report given, questions answered & plan of care reviewed with Natalie GAY.
[2019-11-26 06:30] LABS: POTASSIUM 3.7 MMOL/L (3.5-5.1)
[2019-11-26 06:35] LABS: PREALBUMIN 11.2 MG/DL (19-36)
[2019-11-26] MEDS: acetylcysteine 200 MG/ml 4ml vial PO SCH ×4 (07:00→19:03)
--- NOTE | 2019-11-26 07:12 | NUR ---
Patient labs were ordered per protocol as they are on replacement protocol and lovenox, and abx which require lab monitoring for administration.
[2019-11-26] MEDS: docusate sodium 100mg/10ml UD cup GT SCH ×2 (07:23→19:29)
[2019-11-26] MEDS: amiodarone 200mg tablet JT SCH (07:24)
[2019-11-26] MEDS: lactobacillus rhamnosus 10,000 MMU CELLS/CAPSULE PO SCH ×2 (07:24→20:28)
[2019-11-26] MEDS: furosemide 40mg/4ml inj IV SCH ×3 (07:24→20:26)
[2019-11-26] MEDS: VANCOMYCIN 750MG IV in NS 250 ML IV SCH ×2 (07:25→20:27)
[2019-11-26] MEDS: pantoprazole 40 MG vial IV SCH (07:25)
[2019-11-26] MEDS: K and/or MAG REPLACEMENT MC SCH ×3 (08:00→20:00)
[2019-11-26] MEDS: enoxaparin 100mg/ml syringe SUBCUT SCH ×2 (08:00→20:29)
[2019-11-26 08:06] LABS: BASOPHILS # (AUTO) 0.2 X10'3 (0-0.2); BASOPHILS % (AUTO) 0.7 % (0-1); EOSINOPHILS # (AUTO) 0.5 X10'3 (0-0.9); EOSINOPHILS % (AUTO) 2.1 % (0-6); HEMATOCRIT 28.3 % (42.0-52.0); HEMOGLOBIN 8.8 g/dl (14.0-17.9); LYMPHOCYTES # (AUTO) 0.8 X10'3 (1.1-4.8); LYMPHOCYTES % (AUTO) 3.6 % (21-51); MEAN CORPUSCULAR HEMOGLOBIN 28.3 PG (27.0-31.0); MEAN CORPUSCULAR HGB CONC 31.3 g/dL (33.0-36.5); MEAN CORPUSCULAR VOLUME 90.5 FL (78-98); MEAN PLATELET VOLUME 9.3 FL (7.4-10.4); MONOCYTES # (AUTO) 1.6 X10'3 (0-0.9); NEUTROPHILS # (AUTO) 20.2 X10'3 (1.8-7.7); NEUTROPHILS % (AUTO) 86.6 % (42-75); PLATELET COUNT 406 X10'3 (140-440); RED BLOOD COUNT 3.12 X10'6 (4.70-6.10); RED CELL DISTRIBUTION WIDTH 17.1 % (11.5-14.5); WHITE BLOOD COUNT 23.3 X10'3 (4.5-11.0)
[2019-11-26 08:09] LABS: ALANINE AMINOTRANSFERASE 27 U/L (12-78); ALBUMIN 1.6 G/DL (3.4-5.0); ALBUMIN/GLOBULIN RATIO 0.3 (1.1-1.5); ALKALINE PHOSPHATASE 107 IU/L (46-116); ANION GAP -2 (8-16); ASPARTATE AMINO TRANSFERASE 32 U/L (10-37); BILIRUBIN,TOTAL 0.2 MG/DL (0.1-1.0); BLOOD UREA NITROGEN 29 MG/DL (7-18); BUN/CREATININE RATIO 19.9 (5.4-32.0); CALCIUM 8.3 MG/DL (8.5-10.1); CHLORIDE 101 MMOL/L (99-107); CREATININE 1.46 MG/DL (0.60-1.10); GLUCOSE 122 MG/DL (70-104); MAGNESIUM 2.4 MG/DL (1.5-2.4); POTASSIUM 3.7 MMOL/L (3.5-5.1); SODIUM 142 MMOL/L (135-145); TOTAL PROTEIN 6.9 G/DL (6.4-8.2); eGFR 47 ML/MIN
[2019-11-26 08:16] LABS: TOTAL CARBON DIOXIDE 43.1 MMOL/L (24-32)
--- NOTE | 2019-11-26 08:24 | NUR ---
promotional table spacer PAGER ID: [phone] MESSAGE: [id number] Kaci. Critical CO2 43.1. Faina [phone] (49 character message out of a maximum of 240)
--- NOTE | 2019-11-26 08:25 | NUR ---
3 ml mucomyst given with duoneb in-line tx. Addendum: 11/26/19 at 0826 by Asiya Olguin RT Amended: Links added.
[2019-11-26] MEDS: HYDROmorphone 2mg tablet JT PRN ×3 (09:19→20:27)
[2019-11-26] MEDS ORDERED: methylPREDNISolone sod succ 125mg/2ml vial IV ONE (12:35)
--- NOTE | 2019-11-26 12:37 | NUR ---
Spoke with Dr. Juárez while rounding on patient. He gave me orders for a repeat ABG this afternoon, solumedrol 125mg IV once, and solumedrol 60mg IV scheduled q6.
--- NOTE | 2019-11-26 14:33 | NUR ---
PRESSURE ULCER EDUCATION: DEFINITION: A pressure ulcer is an area of skin that breaks down when you stay in one position too long. The constant pressure against the skin reduces the blood flow to that area and the affected tissue dies. CAUSES: "Being bedridden or in a wheelchair "Fragile skin "Having a chronic condition, such as diabetes or vascular disease "Inability to move certain parts of your body without assistance "Older age "Incontinence of urine or stool SYMPTOMS: "A reddened area that DOES NOT turn white when pressed on - this can be the beginning of a pressure ulcer "A blister, deep sore or a crater - these can be advanced pressure ulcers FIRST AID: "Relieve the pressure on this area "Keep the area clean and dry "Call your primary doctor if you see any of the above symptoms "DO NOT massage the area "DO NOT use a donut shaped or ring shaped pillow- these actually interfere with the blood flow and cause complications PREVENTION: "Check for pressure ulcers everyday "Change position at least every two hours to relieve pressure "Use items that help relieve pressure- pillows, sheepskin, foam padding, and powders. "Keep skin clean and dry "Eat healthy well balanced meals "Exercise daily IF YOU SEE ANY OF THESE SYMPTOMS WHILE IN THE HOSPITAL - TELL YOUR NURSE IMMEDIATELY. IF YOU SEE ANY OF THESE SYMPTOMS WHILE AT HOME OR HAVE ANY QUESTIONS OR CONCERNS ABOUT PRESSURE ULCERS - CALL YOUR PRIMARY DOCTOR IMMEDIATELY. Addendum: 11/26/19 at 1434 by Sandi Carlson RN Amended: Links added.
[2019-11-26] MEDS ORDERED: magnesium Cl slow-release 64mg tablet PO PRN (14:35)
[2019-11-26] MEDS ORDERED: potassium CL 10mEq/100ml bag 100 ML IV PRN (14:35)
[2019-11-26] MEDS ORDERED: magnesium 4gm in 100ml NS 100 ML IV PRN (14:35)
[2019-11-26] MEDS ORDERED: potassium Cl 20 mEq SR tablet PO PRN (14:35)
[2019-11-26] MEDS: levoFLOXACIN-Levaquin 750MG/D5 150 ML IV SCH (16:30)
[2019-11-26] MEDS: methylPREDNISolone sod succ 125mg/2ml vial IV SCH ×2 (16:31→20:26)
--- NOTE | 2019-11-26 18:02 | NUR ---
Spoke with Dr. Juárez, okayed a trial on high flow nasal canula. The patient was only able to tolerated being on high flow 15L for approximately 5 to 10 min and then his oxygen saturation dropped into the 70s. Patient was placed back on Bipap and was agreeable at this time to wearing the mask.
[2019-11-26 18:10] LABS: ABG BASE EXCESS 13.2 mmol/L (-2.0-3.0); ABG OXYGEN SATURATION 93.2 % (95-98); ABG PCO2 (T) 64.5 mmHg (35.0-45.0); ABG PO2 (T) 64.5 mmHg (83-108); ALLEN'S TEST POSITIVE; FCOHb 0.3 % (0.5-1.5); FMetHb 0.1 % (0.3-1.12); FO2Hb 92.8 % (94-100); TOTAL HEMOGLOBIN 10.3 G/dl (14.0-17.9)
--- NOTE | 2019-11-26 18:17 | NUR ---
Patient in room PCU 3024. I have received report from Natalie GAY and Myra GAY and had the opportunity to ask questions and assume patient care.
--- NOTE | 2019-11-26 19:48 | NUR ---
Reassessment: Pt tolerating JTF at goal. Colace held for increase in BM's; receiving routine probiotic. BM x2 5/. PALB up to 11.2 from previous. PO 0%/refusing clear liquid diet. Will continue to monitor. Recommendations: 1) Continuous TF via jejunostomy using Vital AF with goal rate of 85 mL/hr to provide 2040 mL total volume/day, 2448 kcal, 153 g protein, and 1654 mL water 2) Additional 100 mL water flush Q4H; Not to exceed greater than 150 mL total volume at one time via J-tube 3) Prealbumin q /; daily weights 4) MVI and SQ or IM vitamin B12 given recent GI surgery with MD approval 5) Diet advancement as medically indicated to low-residue 6) Routine bowel care Addendum: 11/26/19 at [address] Amended: Links added.
[2019-11-26] MEDS: OLANZapine 5mg rapidly disint. tablet PO SCH (20:27)
[2019-11-26] MEDS: insulin glargine (Lantus) pen - multi-dose SQ SCH (20:57)
[2019-11-26] MEDS: loperamide 2mg capsule PO PRN (20:59)
[2019-11-27] VITALS (12 sets, daily range): BP systolic 100–121; BP diastolic 44–64
[2019-11-27] MEDS: piperacillin/tazo 3.375gm/50ml 50 ML IV SCH ×3 (00:29→16:53)
[2019-11-27] MEDS: methylPREDNISolone sod succ 125mg/2ml vial IV SCH ×4 (01:04→20:43)
[2019-11-27] MEDS: HYDROmorphone 2mg tablet JT PRN ×4 (01:04→20:20)
[2019-11-27] MEDS: insulin regular, human U-100 3ml vial - multi-dose SQ SCH ×3 (02:13→21:36)
[2019-11-27] MEDS: ipratropium/albuterol 3ml nebule NEB SCH ×6 (03:17→23:07)
--- NOTE | 2019-11-27 06:31 | NUR ---
Problems reprioritized. Patient report given, questions answered & plan of care reviewed with Natalie GAY and Myra GAY.
[2019-11-27] MEDS ORDERED: VANCOMYCIN LEVEL IV ONE (07:30)
[2019-11-27] MEDS: acetylcysteine 200 MG/ml 4ml vial PO SCH ×4 (07:40→19:03)
[2019-11-27 07:52] LABS: BASOPHILS % (AUTO) 0.2 % (0-1); EOSINOPHILS % (AUTO) 0 % (0-6); HEMATOCRIT 29.3 % (42.0-52.0); LYMPHOCYTES # (AUTO) 0.4 X10'3 (1.1-4.8); LYMPHOCYTES % (AUTO) 2.1 % (21-51); MEAN CORPUSCULAR HEMOGLOBIN 27.9 PG (27.0-31.0); MEAN CORPUSCULAR HGB CONC 30.8 g/dL (33.0-36.5); MEAN CORPUSCULAR VOLUME 90.4 FL (78-98); MONOCYTES # (AUTO) 0.4 X10'3 (0-0.9); NEUTROPHILS # (AUTO) 18.5 X10'3 (1.8-7.7); NEUTROPHILS % (AUTO) 95.7 % (42-75); PLATELET COUNT 427 X10'3 (140-440); RED BLOOD COUNT 3.24 X10'6 (4.70-6.10); RED CELL DISTRIBUTION WIDTH 17.5 % (11.5-14.5); WHITE BLOOD COUNT 19.3 X10'3 (4.5-11.0)
[2019-11-27 07:53] LABS: ALANINE AMINOTRANSFERASE 27 U/L (12-78); ALBUMIN 1.7 G/DL (3.4-5.0); ALBUMIN/GLOBULIN RATIO 0.3 (1.1-1.5); ALKALINE PHOSPHATASE 106 IU/L (46-116); ANION GAP 1 (8-16); ASPARTATE AMINO TRANSFERASE 35 U/L (10-37); BILIRUBIN,TOTAL 0.2 MG/DL (0.1-1.0); BLOOD UREA NITROGEN 39 MG/DL (7-18); BUN/CREATININE RATIO 25.2 (5.4-32.0); CALCIUM 8.9 MG/DL (8.5-10.1); CHLORIDE 100 MMOL/L (99-107); CREATININE 1.55 MG/DL (0.60-1.10); GLUCOSE 168 MG/DL (70-104); MAGNESIUM 2.5 MG/DL (1.5-2.4); PHOSPHORUS 3.5 MG/DL (2.3-4.5); POTASSIUM 4.1 MMOL/L (3.5-5.1); SODIUM 141 MMOL/L (135-145); TOTAL CARBON DIOXIDE 39.9 MMOL/L (24-32); TOTAL PROTEIN 7.4 G/DL (6.4-8.2); eGFR 44 ML/MIN
[2019-11-27] MEDS: amiodarone 200mg tablet JT SCH (07:54)
[2019-11-27] MEDS: lactobacillus rhamnosus 10,000 MMU CELLS/CAPSULE PO SCH ×2 (07:55→20:50)
[2019-11-27] MEDS: enoxaparin 100mg/ml syringe SUBCUT SCH ×2 (07:55→20:49)
[2019-11-27] MEDS: pantoprazole 40 MG vial IV SCH (07:56)
[2019-11-27 07:59] LABS: VANCOMYCIN,TROUGH 28.6 UG/ML (6.0-14.0)
[2019-11-27] MEDS: docusate sodium 100mg/10ml UD cup GT SCH ×2 (08:00→20:00)
[2019-11-27] MEDS: K and/or MAG REPLACEMENT MC SCH ×2 (08:00→20:00)
[2019-11-27] MEDS: levoFLOXACIN-Levaquin 750MG/D5 150 ML IV SCH (08:07)
[2019-11-27] MEDS: furosemide 40mg/4ml inj IV SCH ×3 (08:14→20:44)
[2019-11-27] MEDS: loperamide 2mg capsule PO PRN (09:17)
--- NOTE | 2019-11-27 18:37 | NUR ---
Problems reprioritized. Patient report given, questions answered & plan of care reviewed with Bárbara GAY. Patient stable at transfer of care.
[2019-11-27] MEDS ORDERED: VANCOMYCIN 750MG IV in NS 250 ML IV SCH (20:00)
[2019-11-27] MEDS: OLANZapine 5mg rapidly disint. tablet PO SCH (20:21)
[2019-11-27] MEDS: insulin glargine (Lantus) pen - multi-dose SQ SCH (21:37)
--- NOTE | 2019-11-27 22:43 | NUR ---
pt woke confused, sat at side of bed. stated he felt like he was turning to stone. Vitals ok, except oxygen which he had taken off. high flow nasal cannula applied and oxygen sats improved. pt sat at side of bed for a few minutes and then went back to bed. dick care done, small loose bm. changed coccyx dressing again due to soiling. denied needing to void. blood sugar checked, 265. reassured pt that he is being monitored and frequent rounding being done
[2019-11-28] VITALS (7 sets, daily range): BP systolic 87–128; BP diastolic 47–72
[2019-11-28] MEDS: piperacillin/tazo 3.375gm/50ml 50 ML IV SCH ×3 (00:20→16:13)
[2019-11-28] MEDS: methylPREDNISolone sod succ 125mg/2ml vial IV SCH ×3 (02:14→13:18)
[2019-11-28] MEDS: insulin regular, human U-100 3ml vial - multi-dose SQ SCH ×3 (02:23→14:29)
[2019-11-28] MEDS: HYDROmorphone 2mg tablet JT PRN ×2 (02:28→07:50)
[2019-11-28] MEDS: ipratropium/albuterol 3ml nebule NEB SCH ×4 (02:53→15:29)
[2019-11-28] MEDS ORDERED: OLANZAPINE 5 MG TABLET PO SCH (04:52)
[2019-11-28 05:33] LABS: BASOPHILS # (AUTO) 0.1 X10'3 (0-0.2); BASOPHILS % (AUTO) 0.3 % (0-1); EOSINOPHILS % (AUTO) 0 % (0-6); HEMATOCRIT 25.7 % (42.0-52.0); HEMOGLOBIN 7.9 g/dl (14.0-17.9); LYMPHOCYTES # (AUTO) 0.5 X10'3 (1.1-4.8); LYMPHOCYTES % (AUTO) 2.1 % (21-51); MEAN CORPUSCULAR HEMOGLOBIN 27.5 PG (27.0-31.0); MEAN CORPUSCULAR HGB CONC 30.9 g/dL (33.0-36.5); MEAN CORPUSCULAR VOLUME 89.2 FL (78-98); MEAN PLATELET VOLUME 9.7 FL (7.4-10.4); MONOCYTES # (AUTO) 0.5 X10'3 (0-0.9); MONOCYTES % (AUTO) 2.2 % (2-12); NEUTROPHILS # (AUTO) 23.5 X10'3 (1.8-7.7); NEUTROPHILS % (AUTO) 95.4 % (42-75); PLATELET COUNT 424 X10'3 (140-440); RED BLOOD COUNT 2.88 X10'6 (4.70-6.10); RED CELL DISTRIBUTION WIDTH 17.6 % (11.5-14.5); WHITE BLOOD COUNT 24.7 X10'3 (4.5-11.0)
--- NOTE | 2019-11-28 06:03 | NUR ---
Problems reprioritized. Patient report given, questions answered & plan of care reviewed with Ana and Purvi RNS.
[2019-11-28 06:05] LABS: ALANINE AMINOTRANSFERASE 35 U/L (12-78); ALBUMIN 1.7 G/DL (3.4-5.0); ALBUMIN/GLOBULIN RATIO 0.3 (1.1-1.5); ALKALINE PHOSPHATASE 98 IU/L (46-116); ANION GAP 2 (8-16); ASPARTATE AMINO TRANSFERASE 43 U/L (10-37); BILIRUBIN,TOTAL 0.2 MG/DL (0.1-1.0); BLOOD UREA NITROGEN 47 MG/DL (7-18); BUN/CREATININE RATIO 30.1 (5.4-32.0); CALCIUM 8.7 MG/DL (8.5-10.1); CHLORIDE 100 MMOL/L (99-107); CREATININE 1.56 MG/DL (0.60-1.10); GLUCOSE 166 MG/DL (70-104); MAGNESIUM 2.3 MG/DL (1.5-2.4); PHOSPHORUS 3.6 MG/DL (2.3-4.5); POTASSIUM 3.4 MMOL/L (3.5-5.1); SODIUM 141 MMOL/L (135-145); TOTAL CARBON DIOXIDE 38.8 MMOL/L (24-32); TOTAL PROTEIN 6.8 G/DL (6.4-8.2); eGFR 44 ML/MIN
--- NOTE | 2019-11-28 06:10 | NUR ---
Patient in room PCU 3024. I have received report from Bárbara GAY and had the opportunity to ask questions and assume patient care.
--- NOTE | 2019-11-28 06:35 | NUR ---
Patient in room PCU 3024. I have received report from Bárbara GAY and had the opportunity to ask questions and assume patient care.
[2019-11-28] MEDS: docusate sodium 100mg/10ml UD cup GT SCH (07:48)
[2019-11-28] MEDS: pantoprazole 40 MG vial IV SCH (07:49)
[2019-11-28] MEDS: furosemide 40mg/4ml inj IV SCH ×2 (07:49→13:18)
[2019-11-28] MEDS: lactobacillus rhamnosus 10,000 MMU CELLS/CAPSULE PO SCH (07:51)
[2019-11-28] MEDS: amiodarone 200mg tablet JT SCH (07:51)
[2019-11-28] MEDS: enoxaparin 100mg/ml syringe SUBCUT SCH (07:52)
[2019-11-28] MEDS: potassium Cl 20 mEq SR tablet PO PRN ×2 (07:55→16:21)
[2019-11-28] MEDS: K and/or MAG REPLACEMENT MC SCH (08:00)
[2019-11-28] MEDS: acetylcysteine 200 MG/ml 4ml vial PO SCH ×2 (08:13→11:31)
--- NOTE | 2019-11-28 08:33 | NUR ---
Paged Dr Massey PAGER ID: [phone] MESSAGE: [id number] Tanvir Cabrera is diabetic. Can we get a hyperglycemia protocol. Purvi [id number] Addendum: 11/28/19 at 0836 by Purvi Jacome RN Mistake charted wrong pt. Please disregard.
--- NOTE | 2019-11-28 09:36 | NUR ---
Called patients , Elly, and updated her on plan of care. Patient sitting in chair at bedside, will continue to monitor the patient closely.
--- NOTE | 2019-11-28 13:12 | NUR ---
Sent Dr Juárez a page re PAGER ID: [phone] MESSAGE: Ana GAY [phone] [id number] carlos Dunn came back negative. thanks Addendum: 11/28/19 at 1312 by Terri Ford RN Dr Juárez said to notify from bonnie from case management know.
--- NOTE | 2019-11-28 16:36 | NUR ---
Called Erica and gave report to Felicitas, all questions answered, awaiting patients departure.
--- NOTE | 2019-11-28 17:53 | NUR ---
Orientee documentation: I have reviewed and agree with all interventions, assessments performed and documented by Purvi GAY. Orientee Medication Administration: For this medication-pass time frame, all medication were reviewed, dispensed, administered and documented per hospital policy by Purvi GAY.
--- NOTE | 2019-11-28 18:43 | NUR ---
Stable for transfer per MD order, discharge instructions reviewed with Erica ERIC RN, report called to the accepting facillity, all questions answered, Tele removed and on PIV removed, left one R upper extended PIV in per Erica's request due to patient being a hard stick, all belongings collected and sent with the patient, left the unit at 1850 in [facility] with EMS.
[2019-11-29] MEDS ORDERED: multivitamins, therapeutics tablet PO SCH (08:00)
[2019-11-29] MEDS ORDERED: levoFLOXACIN-Levaquin 750MG/D5 150 ML IV SCH (08:00)
[2019-11-29] MEDS ORDERED: VANCOMYCIN LEVEL IV ONE (19:30)
== END 2019-11-28 18:00 | DRG 177 ==
LOC: ER 18:28 → ED HOLD 23:21 → UNDOADMIN 11-20 00:02 → ED HOLD 11-20 00:02 → PCU 3S 11-20 00:08 → ED HOLD 11-20 00:08
PROVIDERS: ADMIT Internal Medicine; ATTEND Family Medicine
PROC: B32T1ZZ Computerized Tomography (CT Scan) of Left Pulmonary Artery using Low Osmolar Contrast (ICD-10-PCS; principal; 2019-11-19)
PROC: B3201ZZ Computerized Tomography (CT Scan) of Thoracic Aorta using Low Osmolar Contrast (ICD-10-PCS; 2019-11-19)
PROC: B32S1ZZ Computerized Tomography (CT Scan) of Right Pulmonary Artery using Low Osmolar Contrast (ICD-10-PCS; 2019-11-19)
PROC: 5A09457 Assistance with Respiratory Ventilation, 24-96 Consecutive Hours, Continuous Positive Airway Pressure (ICD-10-PCS; 2019-11-25)
DX: J69.0 Pneumonitis due to inhalation of food and vomit (principal); I26.99 Other pulmonary embolism without acute cor pulmonale; J96.21 Acute and chronic respiratory failure with hypoxia; I50.31 Acute diastolic (congestive) heart failure; S22.41XA Multiple fractures of ribs, right side, initial encounter for closed fracture; J98.11 Atelectasis; E66.2 Morbid (severe) obesity with alveolar hypoventilation; J90 Pleural effusion, not elsewhere classified; J44.1 Chronic obstructive pulmonary disease with (acute) exacerbation; J44.0 Chronic obstructive pulmonary disease with (acute) lower respiratory infection; N17.9 Acute kidney failure, unspecified; Z66 Do not resuscitate; Z20.828 Contact with and (suspected) exposure to other viral communicable diseases; K44.9 Diaphragmatic hernia without obstruction or gangrene; K22.5 Diverticulum of esophagus, acquired; X58.XXXA Exposure to other specified factors, initial encounter; I25.10 Atherosclerotic heart disease of native coronary artery without angina pectoris; T38.0X5A Adverse effect of glucocorticoids and synthetic analogues, initial encounter; Y92.89 Other specified places as the place of occurrence of the external cause; Z68.31 Body mass index [BMI] 31.0-31.9, adult; Z90.81 Acquired absence of spleen; Z87.891 Personal history of nicotine dependence; Z85.01 Personal history of malignant neoplasm of esophagus; Z90.411 Acquired partial absence of pancreas; Z90.49 Acquired absence of other specified parts of digestive tract; Z90.3 Acquired absence of stomach [part of]; Z93.4 Other artificial openings of gastrointestinal tract status; Y93.89 Activity, other specified; Y99.8 Other external cause status
CPT/HCPCS: 36415; 36600; 71045; 71275; 76604; 76937; 80048; 80053; 80202; 82803; 82948; 83036; 83605; 83735; 83880; 84100; 84132; 84134; 84145; 84484; 85018; 85025; 85610; 85730; 87040; 87081; 87635; 93005; 93970; 94640; 94660; 94668; 94760; 96374; 97110; 97116; 97162; 97530; 97535; 99291; C9113; G0378; J1644; J1650; J1815; J1940; J1956; J2543; J2930; J3370; J7030; J7040; J7050; Q9967

== ENCOUNTER 2019-12-18 09:29 | Inpatient (IN) | payer OTHER, MEDICARE ==
[~2019-12-18] VITALS: Ht 182.9 cm; Wt 100.0 kg
[~2019-12-18 09:29] MED LIST changes: +ACET-1008 PO; +ALB0.5UD IH; +AMIO200T61 PO; +ATR0.5NEB IH; +DOCU100C40 PO; +ENOX100S3 SQ; +FURO-149 PO; +HYDR-4383 PO; +INSU100C10 SQ; +LANTUS SQ; -LIDO30CR23 TOP; +LOPE2CAP PO; +LORA2VIA30 IM; +MAG355OR18 PO; +METH125V13 IM; +OLAN5TAB3 PO; +ONDA4TAB12 PO; +PANT40TA4 PO; +PIPE3.376 IV; +POLY17PO10 PO; -PROC10TA10 PO; +ROBCFL PO; +VANC1VIA21 IV
[2019-12-18] MEDS ORDERED: DOPamine 400mg/D5W 250ml 250 ML IV SCH ×2 (09:45→10:35)
--- NOTE | 2019-12-18 10:15 | NUR ---
spoke to joanna miles bp, upped mopamine to 5.3 which is what he came in on
--- NOTE | 2019-12-18 10:16 | NUR ---
PT'S FAMILY CALLED PER DR CANAS. PER DR CANAS NEEDS TO COME TO THE ER SOON POSSIBLE. SPOKE WITH AND SHE WILL BE HERE ANDREA
--- NOTE | 2019-12-18 10:25 | NUR ---
spoke to provider re bpjoanna states give ns bolus, he is aware pt has already had 2L bolus
--- NOTE | 2019-12-18 10:25 | NUR ---
spoke to provider again, bp 74/40 upped dopamine to 10mc/kg/min, per normal protocol
--- NOTE | 2019-12-18 10:36 | NUR ---
titrated dopamine up to 15mcg/kg/min map was only 60
[2019-12-18] MEDS ORDERED: normal saline 1000ml 1,000 ML IV ONE (10:40)
--- NOTE | 2019-12-18 10:56 | NUR ---
spoke to dr jones re: bg 69, ordered amp d50
[2019-12-18] MEDS ORDERED: dextrose 50%-water 50ml dispensing syringe IV ONE (11:00)
--- NOTE | 2019-12-18 11:36 | NUR ---
Due to pts singh, the bipap has a large leak that is inevitable. Mask adjusted to be snug on pt and still there is a leak. Pts sats are 94% of 90% FiO2. Pt starting to move a little more and tries to pull the mask off. Addendum: 12/18/19 at 1138 by RT Amended: Links added.
--- NOTE | 2019-12-18 12:15 | NUR ---
VERIFIED WITH PT'S DNR STATUS. STATES THAT PT IS TO REMAIN A DNR AND CONFORT CARE ONLY. DR CANAS NOTIFIED
--- NOTE | 2019-12-18 12:33 | NUR ---
APPLIANCES SAMPLE MAKER FROM [facility] CALLED FOR STATUS UPDATE. INFORMED THAT PT WAS GOING TO BE ADMITTED ON CONFORT CARE.
[2019-12-18 13:01] LABS: ALANINE AMINOTRANSFERASE 77 U/L (12-78); ALBUMIN 1.9 G/DL (3.4-5.0); ALBUMIN/GLOBULIN RATIO 0.4 (1.1-1.5); ALKALINE PHOSPHATASE 200 IU/L (46-116); ANION GAP 8 (8-16); ASPARTATE AMINO TRANSFERASE 75 U/L (10-37); BILIRUBIN,TOTAL 0.7 MG/DL (0.1-1.0); BLOOD UREA NITROGEN 54 MG/DL (7-18); BUN/CREATININE RATIO 27.6 (5.4-32.0); CALCIUM 8.5 MG/DL (8.5-10.1); CHLORIDE 108 MMOL/L (99-107); CREATININE 1.96 MG/DL (0.60-1.10); GLUCOSE 108 MG/DL (70-104); POTASSIUM 5.5 MMOL/L (3.5-5.1); SODIUM 144 MMOL/L (135-145); TOTAL CARBON DIOXIDE 27.8 MMOL/L (24-32); TOTAL PROTEIN 6.3 G/DL (6.4-8.2); eGFR 34 ML/MIN
[2019-12-18 14:17] LABS: HEMATOCRIT 31.7 % (42.0-52.0); HEMOGLOBIN 9.5 g/dl (14.0-17.9); MEAN CORPUSCULAR HEMOGLOBIN 29.5 PG (27.0-31.0); MEAN CORPUSCULAR HGB CONC 30.1 g/dL (33.0-36.5); MEAN CORPUSCULAR VOLUME 97.8 FL (78-98); MEAN PLATELET VOLUME 9.1 FL (7.4-10.4); PLATELET COUNT 415 X10'3 (140-440); RED BLOOD COUNT 3.24 X10'6 (4.70-6.10); WHITE BLOOD COUNT 13.1 X10'3 (4.5-11.0)
[2019-12-18 14:29] LABS: PARTIAL THROMBOPLASTIN TIME 32 SECONDS (22-32)
[2019-12-18 14:37] LABS: ANISOCYTOSIS 1+; NUCLEATED RED BLOOD CELLS 2 /100WBC (0-0); PLATELET ESTIMATE NORMAL; TOTAL CELLS COUNTED 100; TOXIC VACUOLATION 1+
[2019-12-18 14:39] LABS: TOXIC GRANULATION 1+
[2019-12-18] MEDS ORDERED: ondansetron/PF 4mg/2ml inj IV PRN (14:50)
[2019-12-18] MEDS ORDERED: mag hydrox/Alum hydrox/simeth 30ml oral suspension PO PRN (14:50)
[2019-12-18] MEDS ORDERED: magnesium hydroxide 30ml (MOM) UD suspension PO PRN (14:50)
[2019-12-18] MEDS ORDERED: morphine 4 MG/ML inj SYRINge IV PRN (14:50)
[2019-12-18] MEDS ORDERED: morphine 2 MG/ML inj. syringe IV PRN (14:50)
[2019-12-18] MEDS ORDERED: acetaminophen 325mg tablet PO PRN (14:50)
[2019-12-18] MEDS ORDERED: LORazepam 2 mg/ml vial IV PRN (14:50)
--- NOTE | 2019-12-18 15:14 | NUR ---
titrated dopamine up to 20mcg/kg/min to call and see if she's coming back
[2019-12-18 15:21] VITALS: BP 107/46
--- NOTE | 2019-12-18 19:07 | NUR ---
Patient in room ED 3. I have received report from Ny, RN and had the opportunity to ask questions and assume patient care.
--- NOTE | 2019-12-18 19:46 | NUR ---
Patient arrived on unit at approximately 1930 on dopamin gtt and bipap. Patient taken off of dopamine gtt upon arrival. Bipap machine will be taken off in approximately 10 min. Pulses are weak to absent, no audible heart sounds. Shantal patient's daughter and Elly patient are at bedside with patient.
--- NOTE | 2019-12-18 21:16 | NUR ---
Sent to Ana PAGER ID: [phone] MESSAGE: [phone] Tanvir Oscar 1945. FYI patient at 2215. Thanks Faina [phone]
--- NOTE | 2019-12-18 21:36 | NUR ---
Patient at 2215. Family was at bedside. Family chose [facility] for their mortuary services. [facility] was called, donor network called. Patient skin care provided, rosemarie removed. Awaiting [facility] to pick patient up.
== END 2019-12-18 22:13 | disposition expired | DRG 291 ==
LOC: ER 09:29 → ED HOLD 14:50 → PCU 3S 19:30
PROVIDERS: ADMIT Family Medicine; ATTEND Family Medicine
PROC: 5A09357 Assistance with Respiratory Ventilation, Less than 24 Consecutive Hours, Continuous Positive Airway Pressure (ICD-10-PCS; principal; 2019-12-18)
DX: I50.31 Acute diastolic (congestive) heart failure (principal); J96.21 Acute and chronic respiratory failure with hypoxia; J96.22 Acute and chronic respiratory failure with hypercapnia; I95.9 Hypotension, unspecified; Z66 Do not resuscitate; N18.9 Chronic kidney disease, unspecified; Z51.5 Encounter for palliative care; J44.9 Chronic obstructive pulmonary disease, unspecified; I48.91 Unspecified atrial fibrillation; Z87.01 Personal history of pneumonia (recurrent); E16.2 Hypoglycemia, unspecified; Z90.81 Acquired absence of spleen; Z90.411 Acquired partial absence of pancreas; Z86.711 Personal history of pulmonary embolism; Z85.028 Personal history of other malignant neoplasm of stomach
CPT/HCPCS: 36415; 71045; 80053; 82948; 83605; 85025; 85610; 85730; 87040; 93005; 94660; 94760; 96361; 96365; 96375; 99291; G0378; J1265; J7030